=== PATIENT | female | born 1990 | race African-American/Black ===

== ENCOUNTER 2019-11-25 01:12 | Emergency (ER) | payer SELFPAY ==
[~2019-11-25] VITALS: Ht 177.8 cm; Wt 99.8 kg
[2019-11-25] VITALS (8 sets, daily range): BP systolic 145–174; BP diastolic 72–126
--- NOTE | 2019-11-25 01:12 | NUR ---
ED Nurse Note: Patient brought in by ambulance with complaints of chest pain induced by methamphetamine use. Darrin arrived with line 18G at right wrist. Patient reports taking .5 gram a smoked meth about an hour ago. Patient is hyperalert and tachy cardic. Patient instructed to consciously try to relax. Will continue to monitor.
--- NOTE | 2019-11-25 01:24 | Emergency Room Report ---
History of Present Illness General Chief Complaint: General Complaint Source: Patient Present Illness HPI Disclaimer: Please note that this report is being documented using RIGIDON technology. This can lead to erroneous entry secondary to incorrect interpretation by the dictating instrument. HPI: 29-year-old female history of bipolar disorder, anxiety and substance abuse presents for evaluation after methamphetamine use. Patient states she relapsed today having been sober for many months from methamphetamine use. She also drank a large amount of alcohol and was very emotional over the of her . She states that she got very panicked and depressed when she went back to their home they used to share. She reported to EMS that she was feeling suicidal but now states that she was more feeling stressed. She does not want to go back to that house and does not know where else she will be able to live. Currently denying thoughts of hurting herself or others. Patient did not attempt to harm herself earlier. Patient is not on a legal hold. PMH: Bipolar disorder, anxiety PSH: Reviewed Allergies: Toradol, morphine Social Hx: Methamphetamine abuse, alcohol abuse Allergies: Coded Allergies: KETOROLAC (Verified Allergy, Unknown, 11/25/19) MORPHINE (Verified Allergy, Unknown, 11/25/19) COVID-19 Screening Contact w/high risk pt: No Experienced COVID-19 symptoms?: No COVID-19 Testing performed OFFICE MACHINE REPAIR SHOP SUPERVISOR: No Patient History Now: No Nursing Documentation-PMH Hx Cardiac Problems: Yes - CHF Hx Hypertension: Yes Hx Pacemaker: No Hx Asthma: No Hx COPD: No Hx Diabetes: No Hx Cancer: No Hx Gastrointestinal Problems: No Hx Dialysis: No History Of Psychiatric Problem: Yes - substance abuse Hx Neurological Problems: No Hx Cerebrovascular Accident: No Hx Seizures: No Review of Systems All Other Systems: negative except mentioned in HPI Physical Exam Vital Signs Date Time Temp Pulse Resp B/P (MAP) Pulse Ox O2 Delivery O2 Flow Rate FiO2 11/25/19 00:57 98.4 98 18 174/126 (142) 98 Room Air General: Awake and alert, anxious appearing, hyperactive HEENT: NC/AT. EOMI. Cardiovascular: RRR. S1 and S2 normal. No murmur appreciated Resp: Normal work of breathing. No cough, wheezing or crackles appreciated Abdomen: Abdomen is soft, nondistended. Nontender Skin: Intact. No abrasions, laceration or rash over the exposed skin MSK: Normal tone and bulk. Moving all extremities. No obvious deformity. Neuro: Awake and alert. Mentating appropriately. Currently denying SI/HI. Somewhat hyperactive and agitated. Medical Decision Making Diagnostic Impression: Primary Impression: Methamphetamine abuse ER Course 29-year-old female presents for evaluation after methamphetamine abuse. She is reporting depression and but currently denies SI/HI and has no plan to harm herself. She would like to speak with somebody about getting alternate housing as she cannot go back to the home of her former . Reports methamphetamine and alcohol use. Will obtain labs to evaluate for other substances, metabolic abnormalities, severe dehydration, etc. Patient arrives agitated likely secondary to the methamphetamine use. Will give Ativan for anxiety/agitation. She is refusing EKG. labs have returned within normal limits. Troponin is negative. Patient is resting comfortably. Will discuss with social work in the morning regarding her housing situation. Laboratory Tests Test 11/25/19 01:21 11/25/19 02:20 Troponin I 0.000 ng/mL (0.000-0.056) White Blood Count 6.3 K/UL (4.8-10.8) Red Blood Count 4.94 M/UL (4.20-5.40) Hemoglobin 12.3 G/DL (12.0-16.0) Hematocrit 38.7 % (37.0-47.0) Mean Corpuscular Volume 78 FL (80-99) L Mean Corpuscular Hemoglobin 24.9 PG (27.0-31.0) L Mean Corpuscular Hemoglobin Concent 31.8 G/DL (32.0-36.0) L Red Cell Distribution Width 16.2 % (11.6-14.8) H Platelet Count 283 K/UL (150-450) Mean Platelet Volume 7.5 FL (6.5-10.1) Neutrophils (%) (Auto) 65.1 % (45.0-75.0) Lymphocytes (%) (Auto) 25.0 % (20.0-45.0) Monocytes (%) (Auto) 5.9 % (1.0-10.0) Eosinophils (%) (Auto) 3.2 % (0.0-3.0) H Basophils (%) (Auto) 0.9 % (0.0-2.0) Sodium Level 140 MMOL/L (136-145) Potassium Level 3.2 MMOL/L (3.5-5.1) L Chloride Level 104 MMOL/L (98-107) Carbon Dioxide Level 29 MMOL/L (21-32) Anion Gap 7 mmol/L (5-15) Blood Urea Nitrogen 14 mg/dL (7-18) Creatinine 0.8 MG/DL (0.55-1.30) Estimated Glomerular Filtration Rate > 60 mL/min (>60) Glucose Level 89 MG/DL (74-106) Calcium Level 8.4 MG/DL (8.5-10.1) L Total Bilirubin 0.3 MG/DL (0.2-1.0) Aspartate Amino Transferase (AST) 23 U/L (15-37) Alanine Aminotransferase (ALT) 22 U/L (12-78) Alkaline Phosphatase 106 U/L (46-116) Total Protein 7.2 G/DL (6.4-8.2) Albumin 3.8 G/DL (3.4-5.0) Globulin 3.4 g/dL Albumin/Globulin Ratio 1.1 (1.0-2.7) Salicylates Level 2.1 ug/mL (2.8-20) L Acetaminophen Level < 2 MCG/ML (10-30) L Serum Alcohol < 3 mg/dL Last Vital Signs Date Time Temp Pulse Resp B/P (MAP) Pulse Ox O2 Delivery O2 Flow Rate FiO2 11/25/19 00:57 98.4 98 18 174/126 (142) 98 Room Air Disposition: HOME, SELF-CARE Condition: Stable Quinton Gaffney MD Nov 25, 2019 01:24
[2019-11-25] MEDS ORDERED: LORazepam Inj 2mg/ml 1ml IV ONE (01:30)
[2019-11-25] MEDS ORDERED: Acetaminophen 500mg (ES) tab ORAL ONE ×2 (02:00)
--- NOTE | 2019-11-25 02:19 | NUR ---
ED Nurse Note: Blood speciment collected and sent to lab. Patient provided with a sandwich and a pitcher of iced water per request. Will continue to monitor.
--- NOTE | 2019-11-25 02:26 | NUR ---
ED Nurse Note: Patient provided with 2 warm blankets upon expressing that she was cold.
[2019-11-25 02:37] LABS: BASOPHILS % (AUTO) 0.9 % (0.0-2.0); EOSINOPHILS % (AUTO) 3.2 % (0.0-3.0); HEMATOCRIT 38.7 % (37.0-47.0); HEMOGLOBIN 12.3 G/DL (12.0-16.0); MEAN CORPUSCULAR VOLUME 78 FL (80-99); MONOCYTES % (AUTO) 5.9 % (1.0-10.0); NEUTROPHILS % (AUTO) 65.1 % (45.0-75.0); PLATELET COUNT 283 K/UL (150-450); RED BLOOD COUNT 4.94 M/UL (4.20-5.40); RED CELL DISTRIBUTION WIDTH 16.2 % (11.6-14.8); WHITE BLOOD COUNT 6.3 K/UL (4.8-10.8)
[2019-11-25 02:42] LABS: ANION GAP 7 mmol/L (5-15); BLOOD UREA NITROGEN 14 mg/dL (7-18); CALCIUM 8.4 MG/DL (8.5-10.1); CARBON DIOXIDE 29 MMOL/L (21-32); CHLORIDE 104 MMOL/L (98-107); CREATININE 0.8 MG/DL (0.55-1.30); POTASSIUM 3.2 MMOL/L (3.5-5.1); SODIUM 140 MMOL/L (136-145)
[2019-11-25 02:47] LABS: ALANINE AMINOTRANSFERASE 22 U/L (12-78); ALBUMIN 3.8 G/DL (3.4-5.0); ALBUMIN/GLOBULIN RATIO 1.1 (1.0-2.7); ALKALINE PHOSPHATASE 106 U/L (46-116); ASPARTATE AMINO TRANSFERASE 23 U/L (15-37); BILIRUBIN,TOTAL 0.3 MG/DL (0.2-1.0)
--- NOTE | 2019-11-25 03:28 | NUR ---
ED Nurse Note: Patient resting comfortably, with no signs or symptoms of acute distress.
--- NOTE | 2019-11-25 04:30 | NUR ---
ED Nurse Note: Patient sleeping, soundly, vital signs stable.
--- NOTE | 2019-11-25 05:45 | NUR ---
ED Nurse Note: Patient still sleeping, will continue to monitor.
--- NOTE | 2019-11-25 07:01 | NUR ---
ED Nurse Note: Patient sleeping, vital signs stable, will continue to monitor for change of shift and determination of care.
--- NOTE | 2019-11-25 07:05 | NUR ---
ED Nurse Note: Pt appears calm and comfortable. pt asleep in bed. pt vss
--- NOTE | 2019-11-25 07:35 | NUR ---
ED Nurse Note: Pt woke up from sleep, pt reports she still wants to harm self but has no plan. pt requested meal. VSS, pt is aox4 on room air. NAD noted
--- NOTE | 2019-11-25 07:38 | NUR ---
ED Nurse Note: Informed ermd of pt status. Attempted to get pt to use restroom to obtain urine sample, per pt she wants to rest some more and needs water. water provided at bedside. pt trying to go back to sleep
--- NOTE | 2019-11-25 07:42 | NUR ---
ED Nurse Note: Pt has a place to stay but states "going home will make me feel depressed". Will contact social media specialist at 0900 for further assistance.
--- NOTE | 2019-11-25 07:49 | NUR ---
ED Nurse Note: PT given meal tray at bedside. pt is awake and eating breakfast
--- NOTE | 2019-11-25 08:03 | NUR ---
ED Nurse Note: Pt was able to ambulate to restroom with nuse assistance.
--- NOTE | 2019-11-25 08:08 | NUR ---
ED Nurse Note: urine specimen obtained. sent to lab. pt finished 100% of meal tray. Pt requested additional sandwhich and juice; provided to pt
[2019-11-25 08:14] LABS: APPEARANCE,URINE SLIGHTLY CLOUDY; BILIRUBIN, URINE NEGATIVE (NEGATIVE); GLUCOSE, URINE (UA) NEGATIVE (NEGATIVE); KETONES,URINE 1+ (NEGATIVE); LEUKOCYTE ESTERASE ,URINE 2+ (NEGATIVE); NITRITE,URINE NEGATIVE (NEGATIVE); PH,URINE 5 (4.5-8.0); PROTEIN,URINE 2+ (NEGATIVE); UROBILINOGEN,URINE NORMAL MG/DL (0.0-1.0)
[2019-11-25 08:24] LABS: COLOR,URINE YELLOW
--- NOTE | 2019-11-25 09:04 | NUR ---
ED Nurse Note: Pt asleep in bed, called [employer] social worker. Per Day she will come down to ER to speak with PT
--- NOTE | 2019-11-25 09:13 | NUR ---
ED Nurse Note: cinder crew worker Day at bedside
--- NOTE | 2019-11-25 09:18 | NUR ---
ED Nurse Note: SW left bedside
--- NOTE | 2019-11-25 09:23 | NUR ---
BURGLAR ALARM MECHANIC NOTE SW attempted to speak to pt. Pt was sleeping, not waking up and was unable to engage w/ this SW. Will attempt in an hour.
--- NOTE | 2019-11-25 09:32 | NUR ---
ED Nurse Note: Pt currently sleeping, no notifications from social welfare clerk at this time
--- NOTE | 2019-11-25 10:05 | NUR ---
ED Nurse Note: Tail Board Man Day at bedside, trying to speak with pt.
--- NOTE | 2019-11-25 10:13 | NUR ---
ED Nurse Note: grove worker left bedside
--- NOTE | 2019-11-25 10:17 | NUR ---
BOX MAKER NOTE SW met w/ pt and discussed DC planning. Pt reports she is residing her boyfriend at [address] [place] [address]. PT did not provide any contact information of friend/family/boyfriend. IT is unknown if pt receives any income. Pt has hx of Bipolar D/O and Anxiety. Pt reports she has intermittent suicidal thought but verbalized she will be safe. SW discussed the safety plan- if she is imminent danger to self/others or if urge increases, this SW recommended pt to walk-in to ER or call 911. SW encouraged pt to F/U w/ outpatient mental health services. Pt verbalized understanding. Pt did not share further psychosocial information/concern/needs. This SW does not believe pt is imminent danger to self. Pt declined to receive community resource packet including the list of shelters. Pt did not disclose which location/address she will be going. PT agreed to be discharged to her preferred location. Pt will be provided w/ tap card.
--- NOTE | 2019-11-25 10:25 | NUR ---
ER DISCHARGE NOTE: Patient is cleared to be discharged per ERMD, pt is aox4, on room air, with stable vital signs. pt was given dc instructions, pt was able to verbalize understanding, pt id band and iv site removed without complications. pt is able to ambulate with steady gait. pt took all belongings. pt has adquate clothing, and given meal
--- NOTE | 2019-11-25 10:25 | NUR ---
ED Nurse Note: Pt given meal and adequate clothing, pt states that she would like to leave and preferred to use to bus as transport. IV site removed.
== END 2019-11-25 10:25 | disposition home or self-care (01) ==
LOC: EDBD 01:12 → EMR 01:36
DX: F15.10 Other stimulant abuse, uncomplicated (principal); R45.851 Suicidal ideations; F31.9 Bipolar disorder, unspecified; F41.9 Anxiety disorder, unspecified; Z88.6 Allergy status to analgesic agent; I10 Essential (primary) hypertension; I50.9 Heart failure, unspecified; F32.9 Major depressive disorder, single episode, unspecified
CPT/HCPCS: 36415; 80053; 80307; 81003; 81025; 84484; 85025; 87086; 87181; 96374; 99284; G0480; J8499